=== PATIENT | male | born 1975 | race Caucasian/White ===

== ENCOUNTER 2016-10-31 11:42 | Emergency (ER) | payer OTHER, BC ==
[~2016-10-31] VITALS: Ht 188 cm; Wt 105.0 kg
[~2016-10-31 11:42] MED LIST: ALLGUNK; FLNIN NAE; SNG10 PO; [UNRECOGNIZED DRUG - CODE]; [UNRECOGNIZED DRUG - CODE]
[2016-10-31 11:51] VITALS: TEMP 36.7; Ht 188 cm; Wt 105.0 kg
[2016-10-31] MEDS ORDERED: FLUT0.15 NAE (13:22)
[2016-10-31] MEDS ORDERED: FEXO1TAB49 PO (13:22)
[2016-10-31] MEDS ORDERED: IBUP-1050 PO (13:23)
[2016-10-31 13:33] LABS: BASO % 0.3 %; BASO ABS # 0.02 K/uL (0-0.2); COMPLETE YES; EOS % 1.2 %; HEMATOCRIT 42.9 % (42-52); IG% 0.2 %; LYMPH % 17.7 %; LYMPH ABS # 1.02 K/uL (1.2-3.4); MEAN CELL VOLUME 86.5 fL (80-100); MEAN CORPUSCULAR HEMOGLOBIN 30.4 pg (25-34); MEAN CORPUSCULAR HGB CONC 35.2 g/dl (32-36); MEAN PLATELET VOLUME 9.5 fL (7.4-10.4); MONO % 9.9 %; NEUT % 70.7 %; PLATELET COUNT 187 K/uL (130-400); RED BLOOD COUNT 4.96 M/uL (4.7-6.1); WHITE BLOOD COUNT 5.76 K/uL (4.8-10.8)
[2016-10-31 13:50] LABS: BUN/CREATININE RATIO 11.2 (10-20); CREATININE 1.2 mg/dl (0.60-1.40); POTASSIUM 3.6 mmol/L (3.5-5.1)
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
--- NOTE | 2016-10-31 15:53 | DIAGNOSTIC IMAGING REPORT ---
LEFT SHOULDER MIN 2 VIEWS ROUTINE CLINICAL HISTORY: Left shoulder pain COMPARISON: None. DISCUSSION: No fractures or dislocations are visualized. There are no visible periarticular calcifications. There is no evidence for soft tissue swelling. IMPRESSION: Unremarkable conventional radiographic evaluation of the left shoulder. Electronically signed by: Milton Thakkar M.D. 10/31/2016 3:52 PM Dictated Date/Time: 10/31/2016 3:49 PM
[2016-10-31 16:01] VITALS: BP 138/94; PULSE 68; O2SAT 98
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
== END 2016-10-31 16:27 | disposition home or self-care (01) ==
LOC: C.EDB 11:44 → C.EDD 16:27
DX: M25.512 Pain in left shoulder (principal); T14.8 Other injury of unspecified body region; V89.2XXA Person injured in unspecified motor-vehicle accident, traffic, initial encounter; Y92.488 Other paved roadways as the place of occurrence of the external cause; Y99.0 Civilian activity done for income or pay; S60.811A Abrasion of right wrist, initial encounter; R07.89 Other chest pain; M54.5 Low back pain; M54.6 Pain in thoracic spine; M54.2 Cervicalgia; R91.8 Other nonspecific abnormal finding of lung field; Z82.49 Family history of ischemic heart disease and other diseases of the circulatory system